=== PATIENT | male | born 1985 | race Caucasian/White ===

== ENCOUNTER 2017-02-07 11:38 | Emergency (ER) | payer SELFPAY ==
--- NOTE | ~2017-02-07 | ER ---
PATIENT'S NAME: CECELIA KOWALSKI [facility] AGE: 31 Y [address] ROOM: [place] [address] LOCATION: [facility] ADMIT DATE: 02/07/2017 ER/Outpatient Report DISCHARGE DATE: 02/07/2017 FAMILY PHYSICIAN: PHYSICIAN, NO ATTENDING PHYSICIAN: Duran Bruce HISTORY OF PRESENT ILLNESS: This patient is a 31-year-old male, who came in with a history of a syncopal episode about a week or so ago and a near syncopal episode today. Initially, he was seen a week ago and evaluated at [facility], and he came here today. I did see this patient along with Dr. Walker, resident, who is working with me here in the emergency department. See Dr. Walker's dictation in regard to the patient's evaluation. I do agree with her assessment, impression, and treatment plan. MD ROBBIN CURIEL/hannahl /[id number] d: 02/07/[id number] t: 02/08/17 0604, OUTPATIENT REPORT
--- NOTE | ~2017-02-07 | ER ---
PATIENT'S NAME: CECELIA KOWALSKI [facility] AGE: 31 Y [address] ROOM: [place] [address] LOCATION: [facility] ADMIT DATE: 02/07/2017 ER/Outpatient Report DISCHARGE DATE: 02/07/2017 FAMILY PHYSICIAN: PHYSICIAN, NO ATTENDING PHYSICIAN: Yariel Ambriz HISTORY OF PRESENT ILLNESS: The patient is a 31-year-old male, who comes in with chief complaint of syncope 1 week ago. The patient was evaluated. The patient states that he had gotten up to use the restroom, remembers flushing the toilet, and then next thing he remembers he was on all fours with his significant other "screaming" at him if everything was okay. The patient was evaluated that day at [facility] with workup including head CT, EKG, and extensive lab work, returning all within normal limits. The patient was discharged home with instructions for syncopal management and instructed to quit marijuana use and make sure he has adequate hydration. The patient states he was "close" to having this happen again this morning. He was getting up from bed and felt a little lightheaded, but he never passed out. He denies any chest pain, shortness of breath, fevers, chills, nausea, vomiting, diarrhea, constipation, rash, or swelling of his extremities. The patient does say that he "smashed" his face against the toilet from his previous syncopal episode, however, the patient does not have any significant bruising to his face or any signs of trauma. He does admit to abdominal pain that he says has been longstanding, has been going on for "years." He has a diagnosis of GERD, but does not take any medications for this. The patient also has a history of colitis in the past. He states he has had colonoscopies and endoscopies as they "thought he had Crohn's" and took biopsies. This was never diagnosed. SOCIAL HISTORY: He smokes marijuana and states last use was yesterday. Denies any alcohol use. Denies any drug use. Does smoke a half a pack a day of cigarettes. MEDICATIONS: The patient takes no medications and denies any [id number]-lgzfxyt medication use. ALLERGIES: THE PATIENT'S ALLERGIES WERE UPDATED AND NOTED IN HIS MEDICAL RECORD. PLEASE SEE DOCUMENTATION FOR INFORMATION. REVIEW OF SYSTEMS: A complete and comprehensive review of systems was completed and was negative except as noted above. PHYSICAL EXAMINATION: PATIENT'S NAME: CECELIA KOWALSKI [facility] AGE: 31 Y [address] ROOM: [place], [place] [address] LOCATION: ED ADMIT DATE: 02/07/2017 ER/Outpatient Report DISCHARGE DATE: 02/07/2017 FAMILY PHYSICIAN: PHYSICIAN, NO ATTENDING PHYSICIAN: Yariel Ambriz VITAL SIGNS: Height 6 feet and 1 inch, weight 124.6 kilos, BP 130/83, pulse 85, respirations 16, temperature 97.9 TM, and O2 of 96% on room air. GENERAL: The patient is in no acute distress, alert, and oriented x4. HEENT: Normal eye inspection. External ears within normal limits. Ear canals mildly erythematous, likely related to irritation from Q-tip use. TMs are normal bilaterally. Mucous membranes moist. No posterior oropharynx edema or erythema. No exudate noted. NECK: No lymphadenopathy. CHEST: Mild wheezing throughout, otherwise clear to auscultation bilaterally. CARDIOVASCULAR: Regular rate and rhythm. No murmurs, rubs, or gallops. ABDOMEN: Normal to inspection. Bowel sounds normal. Soft. Nontender with deep auscultation, but mild tenderness to palpation manually. EXTREMITIES: Able to move all extremities. Nontender. No pedal edema. SKIN: Warm, dry, and intact. NEURO: The patient is independent with ADLs. Orthostatic blood pressures obtained, 127/62 lying with a pulse of 70, 118/68 sitting with a pulse of 66, and 118/78 standing with a pulse of 87. LABORATORY DATA AND X-RAYS: UA was negative. UDS was positive for cannabinoids, otherwise negative. CBC was normal with white count of 7.8, hemoglobin 16.7, and platelets of 257. CMP was relatively normal with a sodium of 140, potassium of 4, BUN of 18, creatinine of 1.2, and glucose of 106. Chloride was mildly elevated at 112. EKG was negative for acute findings. Troponin was negative. T4 was normal at 1.2. TSH was normal at 1.99. Hemoglobin A1c was normal at 5.6. Review of [facility] records showed head CT was negative, EKG was normal, and lab work was comparatively normal. Chest x-ray was negative for acute findings today. EMERGENCY DEPARTMENT COURSE: The patient was evaluated, underwent a workup as above, remained stable with no recurrent symptoms. The patient did not appear in pain during his stay and received no medications or IV fluids. IMPRESSION: Lightheadedness versus syncope. PLAN: The patient has had an extensive workup thus far including ruling out acute head findings, cardiac findings, or lab abnormalities. Unknown cause of his lightheadedness versus syncope could be related to diet, poor activity, or marijuana use. Recommend setting the patient up with a Holter monitor for at least 2 weeks, however, the patient cannot afford this, so we will get him set up with a 24-hour monitor. The patient does not have a current primary care provider, so was instructed to establish care. Names of the current providers PATIENT'S NAME: CECELIA KOWALSKI [facility] AGE: 31 Y [address] ROOM: [place] [address] LOCATION: [facility] ADMIT DATE: 02/07/2017 ER/Outpatient Report DISCHARGE DATE: 02/07/2017 FAMILY PHYSICIAN: PHYSICIAN, NO ATTENDING PHYSICIAN: Yariel Ambriz in [facility] were given to the patient along with contact information for the [facility] across the street. The patient was instructed to stop marijuana use and stop smoking. He was instructed to ensure he has adequate hydration and nutrition and fall prevention was discussed with the patient. The patient was discharged home in good condition. STACIE GOLDSTEIN MED STUDENT, RESIDENT FOR YARIEL AMBRIZ MD SLL/modl /[id number] d: 02/07/172111 t: 02/09/17611, OUTPATIENT REPORT
[2017-02-07 12:29] LABS: BASOPHIL # 0.1 K/uL (0.0-0.2); BASOPHIL % 0.9 %; EOSINOPHIL # 0.4 K/uL (0.0-0.5); EOSINOPHIL % 5.4 %; HEMATOCRIT 47.1 % (37.0-53.0); HEMOGLOBIN 16.7 g/dL (12.0-17.0); IMMATURE GRANULOCYTE % 0.3 %; LYMPHOCYTE # 2.2 K/uL (0.8-4.0); LYMPHOCYTE % 28.7 %; MCH 29.9 pg (27.0-34.0); MCHC 35.5 gm/dL (32.0-36.5); MCV 84.3 fl (83.0-98.0); MONOCYTE # 0.6 K/uL (0.0-1.0); MONOCYTE % 7.2 %; MPV 9.2 fl (9.4-12.4); NEUTROPHIL # (ANC) 4.5 K/uL (1.4-9.0); NEUTROPHIL % 57.5 %; NRBC % 0 /100WBC (0-0.00); PLATELET COUNT 257 K/uL (150-450); RBC 5.59 M/uL (4.00-6.00); RDW-CV 12.8 % (11.9-14.6); WBC 7.8 K/uL (4.0-11.0)
[2017-02-07 12:29] LABS: BILIRUBIN URINE NEGATIVE (NEGATIVE); BLOOD URINE 10 /UL (NEGATIVE); COLOR URINE YELLOW (YELLOW); GLUCOSE URINE NEGATIVE (NEGATIVE); KETONE URINE NEGATIVE (NEGATIVE); LEUKOCYTES URINE NEGATIVE /UL (NEGATIVE); NITRITE URINE NEGATIVE (NEGATIVE); PH URINE 6.5 (4.0-8.0); PROTEIN URINE NEGATIVE (NEGATIVE); TURBIDITY URINE CLEAR (CLEAR); UROBILINOGEN URINE NORMAL (NORMAL)
[2017-02-07 12:36] LABS: BACTERIA URINE NEGATIVE (NEGATIVE); EPITHELIAL URINE RARE #/HPF (NEGATIVE); WBC URINE NEGATIVE #/HPF (NEGATIVE)
[2017-02-07 12:50] LABS: ALBUMIN 4.1 gm/dL (3.5-5.0); ALK PHOS 89 IU/L (33-138); ALT 65 IU/L (12-78); AST 24 IU/L (10-40); BLOOD UREA NITROGEN 18 mg/dL (6-24); CALCIUM 9.2 mg/dL (8.5-10.5); CHLORIDE 112 mMol/L (96-110); CO2 19 mMol/L (22-32); CREATININE 1.2 mg/dL (0.6-1.3); ESTIMATED GFR (MDRD EQUATION) > 60; SODIUM 140 mMol/L (135-145); TOTAL BILIRUBIN 1.1 mg/dL (0.0-1.5)
[2017-02-07 12:54] LABS: COCAINE NEGATIVE (NEGATIVE); OPIATES NEGATIVE (NEGATIVE)
[2017-02-07 12:55] LABS: AMPHETAMINE NEGATIVE (NEGATIVE); BARBITURATE NEGATIVE (NEGATIVE)
== END 2017-02-07 14:07 | disposition disaster alternative care site (69) ==
LOC: GMED 11:38
PROVIDERS: Emergency Medicine
DX: R55 Syncope and collapse (principal)